=== PATIENT | male | born 1990 | race Caucasian/White ===

== ENCOUNTER 2019-12-06 17:21 | Emergency (ER) | payer OTHER ==
[~2019-12-06] VITALS: Ht 172.7 cm; Wt 73.9 kg
[2019-12-06 17:26] VITALS: BP 147/89
--- NOTE | 2019-12-06 17:29 | NUR ---
PT AMBULATED TO BED 4
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
[2019-12-06] MEDS ORDERED: IBUPROFEN 400 MG TAB PO ONE (17:40)
--- NOTE | 2019-12-06 17:43 | NUR ---
x-ray at bedside
[2019-12-06 18:05] VITALS: BP 147/89
--- NOTE | 2019-12-06 18:06 | NUR ---
Patient discharged with v/s stable. Written and verbal after care instructions given and explained. Patient alert, oriented and verbalized understanding of instructions. Ambulatory with . All questions addressed prior to discharge. ID band removed. Patient advised to follow up with PMD. Rx of NAPROSYN given. Patient educated on indication of medication including possible reaction and side effects. Opportunity to ask questions provided and answered.
== END 2019-12-06 18:06 | disposition home or self-care (01) ==
LOC: MED 17:21
DX: S60.221A Contusion of right hand, initial encounter (principal); R03.0 Elevated blood-pressure reading, without diagnosis of hypertension; F17.200 Nicotine dependence, unspecified, uncomplicated; Z71.6 Tobacco abuse counseling; W51.XXXA Accidental striking against or bumped into by another person, initial encounter; Y93.89 Activity, other specified; Y92.89 Other specified places as the place of occurrence of the external cause; Y99.8 Other external cause status
CPT/HCPCS: 73130; 99283; Q0092